=== PATIENT | female | born 1960 | race Asian ===

== ENCOUNTER 2017-11-08 17:03 | Emergency (ER) | payer MEDICAID ==
[~2017-11-08] VITALS: Ht 154.9 cm; Wt 58.1 kg
[~2017-11-08 17:03] MED LIST: AMIT-189 PO; AMLO2.5T2 PO; LISI40TA4 PO; LORA10TA7 PO; PERP4TAB11 PO
[2017-11-08] MEDS ORDERED: morphine 2 MG/ML inj. syringe IV ONE (19:45)
[2017-11-08 20:06] LABS: BASOPHILS % (AUTO) 0.5 % (0-1); EOSINOPHILS # (AUTO) 0.3 X10'3 (0-0.9); HEMATOCRIT 32.9 % (35.0-45.0); HEMOGLOBIN 10.3 g/dl (12.0-16.0); LYMPHOCYTES # (AUTO) 2.4 X10'3 (1.1-4.8); LYMPHOCYTES % (AUTO) 31.8 % (21-51); MEAN CORPUSCULAR HEMOGLOBIN 20.7 PG (27.0-31.0); MEAN CORPUSCULAR HGB CONC 31.3 % (33.0-36.5); MEAN CORPUSCULAR VOLUME 66.2 FL (78-98); MEAN PLATELET VOLUME 8.5 FL (7.4-10.4); MONOCYTES # (AUTO) 0.5 X10'3 (0-0.9); MONOCYTES % (AUTO) 6.2 % (2-12); NEUTROPHILS # (AUTO) 4.4 X10'3 (1.8-7.7); NEUTROPHILS % (AUTO) 57.5 % (42-75); PLATELET COUNT 226 X10'3 (140-440); RED BLOOD COUNT 4.97 X10'6 (4.20-5.60); RED CELL DISTRIBUTION WIDTH 16.6 % (11.5-14.5); WHITE BLOOD COUNT 7.6 X10'3 (4.5-11.0)
[2017-11-08 20:19] LABS: ALANINE AMINOTRANSFERASE 18 U/L (12-78); ALBUMIN/GLOBULIN RATIO 0.8 (1.1-1.5); ALKALINE PHOSPHATASE 55 IU/L (46-116); ANION GAP 5 (8-16); ASPARTATE AMINO TRANSFERASE 16 U/L (10-37); BILIRUBIN,TOTAL 0.3 MG/DL (0.1-1.0); BLOOD UREA NITROGEN 44 MG/DL (7-18); BUN/CREATININE RATIO 22.3 (6.6-38.0); CALCIUM 8.5 MG/DL (8.5-10.1); CHLORIDE 106 MMOL/L (99-107); CREATININE 1.97 MG/DL (0.40-0.90); GLUCOSE 99 MG/DL (70-104); POTASSIUM 4.8 MMOL/L (3.5-5.1); SODIUM 140 MMOL/L (135-145); TOTAL CARBON DIOXIDE 28.9 MMOL/L (24-32); TOTAL PROTEIN 6.8 G/DL (6.4-8.2); eGFR 26 ML/MIN
[2017-11-08 21:48] LABS: PLATELET ESTIMATE NORMAL
[2017-11-08 21:49] LABS: ANISOCYTOSIS 1+; MICROCYTOSIS 2+
[2017-11-08 21:51] LABS: SCHISTOCYTES FEW; TARGET CELLS 1+; TEAR DROP CELLS FEW
[2017-11-08 21:53] LABS: ELLIPTOCYTES FEW
[2017-11-08] MEDS ORDERED: CYCL5TAB PO (22:04)
[2017-11-08] MEDS ORDERED: ondansetron/PF 4mg/2ml inj IV ONE (22:20)
[2017-11-08] MEDS ORDERED: cyclobenzaprine 10mg tablet PO ONE (22:20)
[2017-11-08 22:52] VITALS: BP 125/85
== END 2017-11-08 22:54 | disposition home or self-care (01) ==
LOC: ER 17:04
DX: I12.9 Hypertensive chronic kidney disease with stage 1 through stage 4 chronic kidney disease, or unspecified chronic kidney disease (principal); N18.9 Chronic kidney disease, unspecified; R51 Headache; Z88.0 Allergy status to penicillin; Z79.899 Other long term (current) drug therapy; Z88.8 Allergy status to other drugs, medicaments and biological substances
CPT/HCPCS: 36415; 70450; 80053; 84484; 85025; 96374; 96375; 99285; J2270; J2405

== ENCOUNTER 2018-08-30 04:22 | Outpatient (CLI) | payer SELFPAY ==
[~2018-08-30 04:22] MED LIST changes: +CYCL5TAB PO
[2018-08-30 09:45] LABS: CHOL/HDL RATIO 2.39 (0.00-4.99)
[2018-08-30 09:49] LABS: HEMOGLOBIN A1C 5.8 % (4.5-6.2)
== END 2018-08-30 23:59 | disposition home or self-care (01) ==
LOC: HW HEART 04:22
DX: Z13.6 Encounter for screening for cardiovascular disorders (principal)
CPT/HCPCS: 36415; G0438